=== PATIENT | male | born 1985 | race Caucasian/White ===

== ENCOUNTER 2017-11-05 22:59 | Emergency (ER) | payer OTHER ==
[2017-11-05] MEDS ORDERED: SILVER SULFADIAZINE 25 GM CREAM TOP ONE (23:12)
[2017-11-05] MEDS ORDERED: IBUPROFEN 400 MG TABLET PO ONE (23:14)
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
== END 2017-11-05 23:41 | disposition home or self-care (01) ==
LOC: ER 22:59
DX: T23.252A Burn of second degree of left palm, initial encounter (principal); T24.222A Burn of second degree of left knee, initial encounter; X03.3XXA Fall due to controlled fire, not in building or structure, initial encounter
CPT/HCPCS: 99283